=== PATIENT | female | born 1950 | race African-American/Black ===

== ENCOUNTER 2017-07-20 19:02 | Emergency (ER) | payer MEDICARE, OTHER ==
[~2017-07-20] VITALS: Ht 177.8 cm; Wt 96.0 kg
[2017-07-20 20:15] VITALS: BP 129/68
== END 2017-07-20 20:37 | disposition home or self-care (01) ==
LOC: ER 20:14
DX: J84.9 Interstitial pulmonary disease, unspecified (principal); Z87.891 Personal history of nicotine dependence; Z88.8 Allergy status to other drugs, medicaments and biological substances
CPT/HCPCS: 99281